=== PATIENT | male | born 1965 | race Hispanic/Latino ===

== ENCOUNTER 2021-02-14 16:05 | Emergency (ER) | payer SELFPAY ==
[2021-02-14] MEDS ORDERED: KETOROLAC TROMETHAMINE 60 MG/2 ML VIAL ONE (16:56)
== END 2021-02-14 17:55 | disposition home or self-care (01) ==
LOC: EDH 16:05
DX: S40.011A Contusion of right shoulder, initial encounter (principal); I10 Essential (primary) hypertension; W18.39XA Other fall on same level, initial encounter; Y93.89 Activity, other specified; Y92.89 Other specified places as the place of occurrence of the external cause; Y99.8 Other external cause status
CPT/HCPCS: 73030; 96372; 99283; J1885